=== PATIENT | male | born 1995 | race Two or more races ===

== ENCOUNTER 2025-07-02 15:15 | Inpatient (IN) | payer MEDICAID, OTHER ==
[~2025-07-02] VITALS: Ht 180.3 cm; Wt 108.0 kg
--- NOTE | 2025-07-02 15:21 | ED.PDOC ---
HPI Comments This is a 29 year old male presenting to the ED with chief complaint of chest pain. Patient reports that when he got home from work last night, he had an episode of nausea and vomiting, however, this morning he began to experience left sided chest discomfort with associated palpitations. Patient relays that he had went to work anyway, but felt lightheaded on the way to work and while at work. Patient states he then felt extreme fatigue to his left arm and neck when trying to grab his tools. Patient notes that he is now experiencing left sided chest pain with associated SOB with exertion. Patient denies any cardiac history, dizziness, headache, N/V/D, abdominal pain, or syncope. Time Seen by MD: 15:20 Reviewed Notes: Nurses Notes, Medications, Allergies Allergies: Coded Allergies: NO KNOWN ALLERGIES (Unverified , 07/02/25) Information Source: Patient Mode of Arrival: Ambulatory Severity: Moderate Timing: Hours Duration: Since onset Prehospital treatment: None Location: Chest (L) Radiation: No Radiation Quality: Sharp Onset: At Rest, With Light Exertion Cardiac Risk Factors: None PE Risk Factors: None History of: None Associated Signs and Symptoms: SOB, Palpitations, N/V Past Medical History PAST MEDICAL HISTORY: Denies Surgical History: Denies all surgeries Family History Family History: Reviewed,noncontributory to illness Social History Smoker: Non-Smoker Alcohol: Occasionally Drugs: Marijuana Lives In: Home Constitutional: reports: fatigue; denies: chills, diaphoresis, fever, malaise, sweats, weakness, others EENTM: denies: blurred vision, double vision, ear bleeding, ear discharge, ear drainage, ear pain, ear ringing, eye pain, eye redness, hearing loss, mouth pain, mouth swelling, nasal discharge, nose bleeding, nose congestion, nose pain, photophobia, tearing, throat pain, throat swelling, voice changes, others Respiratory: reports: SOB with excertion; denies: cough, hemoptysis, orthopnea, SOB at rest, shortness of breath, stridor, wheezing, others Cardiovascular: reports: chest pain, palpitations; denies: dizzy spells, diaphoresis, Dyspnea on exertion, edema, irregular heart beat, left arm pain, lightheadedness, PND, syncope, others Gastrointestinal: reports: nausea, vomiting; denies: abdomen distended, abdominal pain, blood streaked bowels, constipated, diarrhea, dysphagia, difficulty swallowing, hematemesis, melena, poor appetite, poor fluid intake, rectal bleeding, rectal pain, others Genitourinary: denies: burning, dysuria, flank pain, frequency, hematuria, incontinence, penile discharge, penile sore, pain, testicle pain, testicle swel ling, urgency, others Neurological: denies: dizziness, fainting, headache, left sided numbness, left sided weakness, numbness, paresthesia, pre-existing deficit, right sided numbness, right sided weakness, seizure, speech problems, tingling, tremors, weakness, others Musculoskeletal: denies: back pain, gout, joint pain, joint swelling, muscle pain, muscle stiffness, neck pain, others Integumetry: denies: bruises, change in color, change in hair/nails, dryness, laceration, lesions, lumps, rash, wounds, others Allergic/Immunocompromised: denies: Difficulty Healing, Frequent Infections, Hives, Itching, others Hematologic/Lymphatic: denies: anemia, blood clots, easy bleeding, easy bruising, swollen glands, others Endocrine: denies: excessive hunger, excessive sweating, excessive thirst, excessive urination, flushing, intolerance to cold, intolerance to heat, unexplained weight gain, unexplained weight loss, others Psychiatric: denies: anxiety, bipolar disorder, depression, hopeless, panic disorder, schizophrenia, sleepless, suicidal, others All Other Systems: Reviewed and Negative Physical Exam General Appearance: Moderate Distress HEENT: Normal ENT Inspection, Pharynx Normal, TMs Normal Neck: Full Range of Motion, Non-Tender, Normal, Normal Inspection Respiratory: Chest Non-Tender, Lungs Clear, No Accessory Muscle Use, No Respiratory Distress, Normal Breath Sounds Cardiovascular: Irregular, No Edema, No JVD, No Murmur, No Gallop, Tachycardia Breast Exam: Deferred Gastrointestinal: No Organomegaly, Non Tender, No Pulsatile Mass, Normal Bowel Sounds, Soft Genitalia: Deferred Pelvic: Deferred Rectal: Deferred Extremities: No calf tenderness, Normal capillary refill, Normal inspection, Normal range of motion, Non-tender, No pedal edema Musculoskeletal : Apperance: Normal Neurologic: Alert, control director II-XII nml as Tested, No Motor Deficits, Normal Affect, Normal Mood, No Sensory Deficits Cerebellar Function: Normal Reflexes: Normal Skin: Dry, Normal Color, Warm Lymphatic: No Adenopathy EKG EKG : Pulse Rate (adult): 173 [place]: Normal Cardiac Rhythm: Afib Block: None Hypertrophy: None ST: Normal Was a procedure done? Was a procedure done?: No CP Differential Dx Differential Diagnosis: Angina, [place], Pulmonary Embolus Differential Diagnosis: CHF Differential Diagnosis: Pericarditis X-Ray, Labs, Meds, VS Vital Signs Date Time Temp Pulse Resp B/P (MAP) Pulse Ox O2 Delivery O2 Flow Rate FiO2 07/02/25 15:22 97.7 156 16 104/79 (87) 96 97.7 07/02/25 15:21 173 07/02/25 15:20 173 Lab Test 07/02/25 15:10 Range/Units White Blood Count 18.3 H 4.4-10.8 10^3/uL Red Blood Count 5.25 4.5-5.90 10^6/uL Hemoglobin 15.8 13.5-17.5 g/dL Hematocrit 46.9 41.0-53.0 % Mean Corpuscular Volume 89.3 80.0-100.0 fL Mean Corpuscular Hemoglobin 30.1 28.0-32.0 pg Mean Corpuscular Hemoglobin Concent 33.7 32.0-36.0 g/dL Red Cell Distribution Width 13.0 11.8-14.3 % Platelet Count 440 140-450 10^3/uL Mean Platelet Volume 8.5 6.9-10.8 fL Neutrophils (%) (Auto) 73.9 37.0-80.0 % Lymphocytes (%) (Auto) 16.0 10.0-50.0 % Monocytes (%) (Auto) 9.1 0.0-12.0 % Eosinophils (%) (Auto) 0.3 0.0-7.0 % Basophils (%) (Auto) 0.7 0.0-2.0 % Neutrophils # (Auto) 13.5 H 1.6-8.6 10 ^3/uL Lymphocytes # (Auto) 2.9 0.4-5.4 10 ^3/uL Monocytes # (Auto) 1.7 H 0-1.3 10 ^3/uL Eosinophils # (Auto) 0 0-0.8 10 ^3/uL Basophils # (Auto) 0.1 0-0.2 10 ^3/uL Nucleated Red Blood Cells 0.1 % Sodium Level 142 136-145 mmol/L Potassium Level 4.2 3.5-5.1 mmol/L Chloride Level 107 98-107 mmol/L Carbon Dioxide Level 24 20-31 mmol/L Anion Gap 11 5-15 Blood Urea Nitrogen 18 9-23 mg/dL Creatinine 1.15 0.700-1.30 mg/dL Glomerular Filtration Rate Calc 88 >90 mL/min BUN/Creatinine Ratio 15.7 10.0-20.0 Serum Glucose 95 74-106 mg/dL Calcium Level 9.8 8.7-10.4 mg/dL Magnesium Level 2.3 1.6-2.6 mg/dL Troponin I High Sensitivity 32 </=54 ng/L Current Medications Medications (Trade) Dose Ordered Sig/Mary Ann Route Start Time Stop Time Status Last Admin Diltiazem HCl (Cardizem Injection) 20 mg ONCE ONCE IV 07/02/25 15:30 07/02/25 15:31 DC 07/02/25 15:39 IV Hep-Lock was established The patient has a heart rate above 160 initially The patient was given diltiazem 20 mg IV push which did not convert the patient but achieved rate control at around 90 The patient's CBC shows an elevated white blood cell count of 18.3 The chemistry panel is within normal limits At this time, the patient is being admitted to the hospitalist. The patient will be given Cardizem orally per the bag machine operator (Dr. Pandey) Images Reviewed?: Images reviewed and evaluated by me Time of 1ST Reevaluation: 15:56 Reevaluation 1ST: Unchanged Patient Education/Counseling: Diagnosis, Treatment, Prognosis Family Education/Counseling: No Family Present SEPSIS Sepsis Screen Physician Orders Heplock Iv (07/02/25 15:18) Structural Worker (07/02/25 15:18) Blood Pressure (07/02/25 15:18) Pulse Oximetry (07/02/25 15:18) Diltiazem 125mg/125ml Bag Kit (Cardizem) (07/02/25 15:30) Troponin-I Hs (07/02/25 16:18) Troponin-I Hs (07/02/25 18:18) Electrocardigram (07/02/25 15:25) Electrocardigram (12/4/25 16:25) Electrocardigram (07/02/25 18:25) Chest Portable (07/02/25 15:26) Vital Signs Date Time Temp Pulse Resp B/P (MAP) Pulse Ox O2 Delivery O2 Flow Rate FiO2 07/02/25 15:22 97.7 156 16 104/79 (87) 96 97.7 07/02/25 15:21 173 07/02/25 15:20 173 Laboratory Tests Test 07/02/25 15:10 White Blood Count 18.3 10^3/uL (4.4-10.8) H Medications Medications Dose Ordered Sig/Mary Ann Route Start Time Stop Time Status Last Admin Dose Admin Diltiazem HCl 20 mg ONCE ONCE IV 07/02/25 15:30 07/02/25 15:31 DC 07/02/25 15:39 Departure 1 Departure Time of Disposition: 16:23 Impression: Primary Impression: Atrial fibrillation with rapid ventricular response Disposition: ADMITTED INPATIENT Admit to: Tele Condition: Fair Critical Care Note Critical Care Time?: Yes (35 min-critical care time only) Stability Stability form required: Yes Unstable for transfer: Telemetry monitoring (Telemetry monitoring required), ED Physician Assesment (Clinical assesment) Heart Score Heart Score: Heart Score Response (Comments) Value History Highly Suspicious 2 EKG Repolarization Disturb 1 Age <45 0 Risk Factors No known risk factors 0 Troponin N/A 0 Total 3 I personally scribed for HEAVENLY MIDDLETON MD ([email or web address]) on 07/02/25 at 15:21. Electronically submitted by Tereso Parish ([email or web address]). I personally scribed for HEAVENLY MIDDLETON MD ([email or web address]) on 07/02/25 at 15:26. Electronically submitted by Tereso Parish ([email or web address]). HEAVENLY MIDDLETON MD Jul 02, 2025 15:21
[2025-07-02 15:22] VITALS: PULSE 156; RESP 16; O2SAT 96
[2025-07-02] MEDS: dilTIAZem 25 MG/5 ML VIAL IV ONE (15:39)
[2025-07-02 15:53] LABS: Hematocrit 46.9 % (41.0-53.0); Hemoglobin 15.8 g/dL (13.5-17.5); Mean Corpuscular Hemoglobin 30.1 pg (28.0-32.0); Mean Corpuscular Volume 89.3 fL (80.0-100.0); Nucleated Red Blood Cells % 0.1 %
[2025-07-02 15:58] LABS: Chloride 107 mmol/L (98-107); Potassium 4.2 mmol/L (3.5-5.1); Sodium 142 mmol/L (136-145)
[2025-07-02 15:59] LABS: Anion Gap 11 (5-15); Calcium 9.8 mg/dL (8.7-10.4); Carbon Dioxide 24 mmol/L (20-31)
[2025-07-02 16:04] LABS: BUN/Creatinine Ratio 15.7 (10.0-20.0); Blood Urea Nitrogen 18 mg/dL (9-23); Glucose 95 mg/dL (74-106); Magnesium 2.3 mg/dL (1.6-2.6)
[2025-07-02] MEDS: dilTIAZem 120MG ER CAP PO ONE (16:31)
[2025-07-02] MEDS ORDERED: NITROGLYCERIN 0.4 MG SL TAB SL PRN (16:45)
[2025-07-02] MEDS ORDERED: MORPHINE SULFATE INJ 2 MG/ml SYRG IV PRN (16:45)
[2025-07-02] MEDS ORDERED: ONDANSETRON HCL 4 MG/2 ML VIAL IV PRN (16:45)
--- NOTE | 2025-07-02 17:01 | DVH ---
CLINICAL HISTORY: Shortness of breath. TECHNIQUE: Single portable upright AP view of the chest was obtained. COMPARISON: None available. FINDINGS: Lungs: Clear. Pleura: No pneumothorax or pleural effusion. Cardiomediastinal silhouette: Top-normal cardiac silhouette. Normal mediastinal silhouette Bones: No acute osseous abnormality. Imaged Upper Abdomen: unremarkable. IMPRESSION: No acute cardiopulmonary process.
--- NOTE | 2025-07-02 17:47 | DVHHP2 ---
History of Present Illness Reason for Visit: Chest pain History of Present Illness 29-year-old presents for evaluation of chest pain. Patient endorses a one day history of developing dizziness initially in the morning with fatigue. She reports leaving to work and developing substernal discomfort he describes it as dullness/pressure. Patient subsequently developed shortness for breath and palpitations so he presented to the emergency department for further evaluation. Past Medical History Denies Past Surgical History Denies Family History Noncontributory Smoke: No ALCOHOL: occassional Drugs: Marijuana Lives: with Family Review of Systems Review of Systems Review of systems are currently negative otherwise addressed in HPI. Allergies: Coded Allergies: NO KNOWN ALLERGIES (Unverified , 07/02/25) Medications Current Medications Medications Dose Ordered Sig/Mary Ann Route Start Time Stop Time Status Last Admin Dose Admin Temazepam 15 mg QHSP PRN PO 07/02/25 16:45 Ondansetron HCl 4 mg Q4HP PRN IV 07/02/25 16:45 Nitroglycerin 0.4 mg Q5MINP PRN SL 07/02/25 16:45 Morphine Sulfate 2 mg Q30M PRN IV 07/02/25 16:45 Exam Vital Signs Vital Signs Date Time Temp Pulse Resp B/P (MAP) Pulse Ox O2 Delivery O2 Flow Rate FiO2 07/02/25 17:32 98 Nasal Cannula* 2 28 07/02/25 17:06 97.7 110 16 120/80 (93) 97.7 Exam Gen: 29-year-old male in mild distress Skin: Warm, dry, normal color and texture, no rash. HEENT: Normocephalic atraumatic, mucous membranes moist and pink. Neck: Cervical and supraclavicular nodes normal without enlargement, trachea is midline, thyroid gland is normal without masses. Pulmonary: Clear to auscultation and percussion bilaterally. Cardiac: Irregular rhythm Abdomen: Soft, nontender, nondistended, bowel sounds present all 4 quadrants, no guarding, no rigidity, no organomegaly. Extremities: No cyanosis, clubbing, no edema Neuro: Cranial nerves II through XII grossly intact, normal affect and speech, no focal motor deficits. Labs/Xrays Labs Test 07/02/25 16:16 07/02/25 15:10 Range/Units Troponin I High Sensitivity 31 </=54 ng/L White Blood Count 18.3 H 4.4-10.8 10^3/uL Red Blood Count 5.25 4.5-5.90 10^6/uL Hemoglobin 15.8 13.5-17.5 g/dL Hematocrit 46.9 41.0-53.0 % Mean Corpuscular Volume 89.3 80.0-100.0 fL Mean Corpuscular Hemoglobin 30.1 28.0-32.0 pg Mean Corpuscular Hemoglobin Concent 33.7 32.0-36.0 g/dL Red Cell Distribution Width 13.0 11.8-14.3 % Platelet Count 440 140-450 10^3/uL Mean Platelet Volume 8.5 6.9-10.8 fL Neutrophils (%) (Auto) 73.9 37.0-80.0 % Lymphocytes (%) (Auto) 16.0 10.0-50.0 % Monocytes (%) (Auto) 9.1 0.0-12.0 % Eosinophils (%) (Auto) 0.3 0.0-7.0 % Basophils (%) (Auto) 0.7 0.0-2.0 % Neutrophils # (Auto) 13.5 H 1.6-8.6 10 ^3/uL Lymphocytes # (Auto) 2.9 0.4-5.4 10 ^3/uL Monocytes # (Auto) 1.7 H 0-1.3 10 ^3/uL Eosinophils # (Auto) 0 0-0.8 10 ^3/uL Basophils # (Auto) 0.1 0-0.2 10 ^3/uL Nucleated Red Blood Cells 0.1 % Sodium Level 142 136-145 mmol/L Potassium Level 4.2 3.5-5.1 mmol/L Chloride Level 107 98-107 mmol/L Carbon Dioxide Level 24 20-31 mmol/L Anion Gap 11 5-15 Blood Urea Nitrogen 18 9-23 mg/dL Creatinine 1.15 0.700-1.30 mg/dL Glomerular Filtration Rate Calc 88 >90 mL/min BUN/Creatinine Ratio 15.7 10.0-20.0 Serum Glucose 95 74-106 mg/dL Calcium Level 9.8 8.7-10.4 mg/dL Magnesium Level 2.3 1.6-2.6 mg/dL Thyroid Stimulating Hormone (TSH) 1.93 0.55-4.78 uIU/mL SEPSIS Sepsis Screen Date sepsis recognized/suspect: Jul 02, 2025 Time Sepsis recognized/suspect: 152 Recent Procedure: No On Antibiotic Therapy: No Respiratory Rate >20: No Heart Rate >90: Yes Temp<36 C (96.8 F) or >38.3 C: No SBP <90 or MAP <65 mmHG: No New Acute Mental Status Change: No Is the patient on CPAP, BIPAP,: No Physician Orders Heplock Iv (07/02/25 15:18) Supply Crib Attendant (07/02/25 15:18) Blood Pressure (07/02/25 15:18) Pulse Oximetry (07/02/25 15:18) Diltiazem 125mg/125ml Bag Kit (Cardizem) (07/02/25 15:30) Troponin-I Hs (07/02/25 18:18) Electrocardigram (07/02/25 15:25) Electrocardigram (07/02/25 16:25) Electrocardigram (07/02/25 18:25) Chest Portable (07/02/25 15:26) * Cardiology Consult (07/02/25 16:40) Regular Diet (07/02/25 Dinner) Basic Metabolic Panel (07/03/25 04:00) Admit (07/02/25 16:40) Temazepam (Restoril) (07/02/25 16:45) Ondansetron Hcl (Zofran) (07/02/25 16:45) Echo 2d Mode Cardiac Dop (07/02/25 16:40) Condition: Fair (07/02/25 16:40) Bedrest With Bathroom Privileg (07/02/25 16:40) Nitroglycerin Sublingual (Ntrostat Subli (07/02/25 16:45) Morphine Sulfate Injection (07/02/25 16:45) Stat Ekg For Chest Pain (07/02/25 16:40) Notify Md Of Changes From Base (07/02/25 16:40) Helicopter Pilot Instructor For 24 Hours (07/02/25 16:40) Emergency Dysrhythmia Protocol (07/02/25 16:40) Rhythm Strips Once Every Shift (07/02/25 16:40) Oxygen By Nasal Cannula (07/02/25 16:40) Vital Signs Date Time Temp Pulse Resp B/P (MAP) Pulse Ox O2 Delivery O2 Flow Rate FiO2 07/02/25 17:32 98 Nasal Cannula* 2 28 07/02/25 17:06 97.7 110 16 120/80 (93) 98 97.7 07/02/25 16:31 102 116/86 07/02/25 15:22 156 16 96 Room Air* 0 21 07/02/25 15:22 97.7 156 16 104/79 (87) 96 97.7 07/02/25 15:21 173 07/02/25 15:20 173 07/02/25 15:15 97.4 173 16 104/79 98 97.4 Laboratory Tests Test 07/02/25 15:10 White Blood Count 18.3 10^3/uL (4.4-10.8) H Medications Medications Dose Ordered Sig/Mary Ann Route Start Time Stop Time Status Last Admin Dose Admin Diltiazem HCl 20 mg ONCE ONCE IV 07/02/25 15:30 07/02/25 15:31 DC 07/02/25 15:39 20 MG Diltiazem HCl 120 mg ONCE ONCE PO 07/02/25 16:00 07/02/25 16:01 DC 07/02/25 16:31 120 MG Assessment/Plan Assessment/Plan Assessment AFib with RVR Palpitations Plan Admit the patient to telemetry to the hospitalist Cardiology consultation Echocardiogram pending Continue treatment per orders. Plan discussed with: Patient My Orders Orders - ROCCO WEBSTER Procedure Category Date Status Time * Cardiology Consult CONS 07/02/25 Transmitted 16:40 Regular Diet DIET 07/02/25 Transmitted Dinner Basic Metabolic Panel LAB 07/03/25 Verified 04:00 Admit ADMIT 07/02/25 Transmitted 16:40 Temazepam (Restoril) PHA 07/02/25 In Process 16:45 Ondansetron Hcl PHA 07/02/25 In Process (Zofran) 16:45 Echo 2d Mode Cardiac US 07/02/25 Logged DOP 16:40 Condition: Fair MARIANO 07/02/25 In Process 16:40 Bedrest With Bathroom MARIANO 07/02/25 In Process Privileg 16:40 Nitroglycerin PHA 07/02/25 In Process Sublingual (Ntrostat 16:45 Morphine Sulfate PHA 07/02/25 In Process Injection 16:45 Stat Ekg For Chest MARIANO 07/02/25 In Process Pain 16:40 Notify Of Changes [facility] 07/02/25 In Process From Base 16:40 Helicopter Pilot Instructor For [facility] 07/02/25 In Process 24 Hours 16:40 Emergency Dysrhythmia [facility] 07/02/25 In Process Protocol 16:40 Rhythm Strips Once [facility] 07/02/25 In Process Every Shift 16:40 Oxygen By Nasal RT 07/02/25 Transmitted Cannula 16:40 Date of Service: Jul 02, 2025 Billing Provider: ROCCO WEBSTER Common Visit Codes: [id number] INP/OBS CARE (HIGH) ROCCO WEBSTER Jul 02, 2025 17:47
[2025-07-02 23:37] VITALS: BP 126/40; PULSE 78; RESP 18; TEMP 98.4; O2SAT 97
[2025-07-03] MEDS: TEMAZEPAM 15 MG CAP PO PRN (00:21)
[2025-07-03 01:00] VITALS: BP 117/82; PULSE 78; RESP 21; TEMP 98; O2SAT 97
--- NOTE | 2025-07-03 03:50 | ECG ---
[facility] Test Date: 2025-07-02 Test Time: 15:53:14 Pat Name: CLARICE FRASER Department: ED Room: 0298T Gender: M Sledger: JULIO : 1995 Requested By: HEAVENLY MIDDLETON Order Number: [id number] Reading MD: Measurements Intervals [place] Rate: 87 P: 0 NM: 0 QRS: 139 QRSD: 98 T: -14 QT: 374 QTc: 450 Interpretive Statements Atrial fibrillation Probable right ventricular hypertrophy Inferior infarct, age indeterminate Abnormal lateral Q waves Please click the below link to view image of tracing.
--- NOTE | 2025-07-03 03:51 | ECG ---
[facility] Test Date: 2025-07-02 Test Time: 18:12:15 Pat Name: CLARICE FRASER Department: ED Room: 0298T Gender: M Manager Critical Care: CIRILO : 1995 Requested By: HEAVENLY MIDDLETON Order Number: [id number] Reading MD: Measurements Intervals [place] Rate: 82 P: 27 [place]: 138 QRS: 119 QRSD: 103 T: -11 QT: 374 QTc: 437 Interpretive Statements Sinus rhythm Inferior infarct, age indeterminate Abnormal lateral Q waves Please click the below link to view image of tracing.
[2025-07-03 05:00] VITALS: BP 121/81; PULSE 81; RESP 22; TEMP 97.9; O2SAT 98
[2025-07-03 07:16] LABS: Chloride 106 mmol/L (98-107); Potassium 3.9 mmol/L (3.5-5.1); Sodium 141 mmol/L (136-145)
[2025-07-03 07:17] LABS: Anion Gap 10 (5-15); Carbon Dioxide 25 mmol/L (20-31)
[2025-07-03 07:18] LABS: Calcium 9.3 mg/dL (8.7-10.4)
[2025-07-03 07:22] LABS: BUN/Creatinine Ratio 14.4 (10.0-20.0); Blood Urea Nitrogen 14 mg/dL (9-23); Glucose 92 mg/dL (74-106)
[2025-07-03 08:00] VITALS: PULSE 74; RESP 16
[2025-07-03 09:00] VITALS: BP 123/85; PULSE 74; RESP 18; TEMP 97.9; O2SAT 95
[2025-07-03 09:39] LABS: Benzodiazephine Screen, Urine Neg (NEGATIVE); Cannabinoid Screen, Urine Pos (NEGATIVE)
[2025-07-03 09:43] LABS: Amphetamine Screen, Urine Neg (NEGATIVE); Barbiturate Scree,Urine Neg (NEGATIVE); Cocaine Screen, Urine Neg (NEGATIVE); Opiate Scree,Urine Neg (NEGATIVE); Phencyclidine Screen, Urine Neg (NEGATIVE)
--- NOTE | 2025-07-03 10:14 | ECG ---
[facility] Test Date: 2025-07-02 Test Time: 15:12:49 Pat Name: CLARICE FRASER Department: ED Room: 0298T Gender: M Insulation Installer: ANIKET : 1995 Requested By: HEAVENLY MIDDLETON Order Number: [id number] Reading MD: Measurements Intervals [place] Rate: 173 P: 0 NM: 0 QRS: 138 QRSD: 94 T: -21 QT: 279 QTc: 474 Interpretive Statements Atrial fibrillation Inferior infarct, age indeterminate Abnormal lateral Q waves Baseline wander in lead(s) II,III,aVR,aVL,aVF Please click the below link to view image of tracing.
--- NOTE | 2025-07-03 11:00 | DVHINCON2 ---
Date Seen: Jul 03, 2025 Referring Physician EFRA Webb Reason for Consultation Afib RVR History of Present Illness This is a 29-year-old male patient who presents to emergency room with chief complaint of palpitations and chest discomfort. The patient reports that he woke up at 4:20 a.m. for work. He states that as soon as he woke up he initially realized his vision was a little bit blurry. Shortly thereafter, he states that his chest felt "weird". He describes feeling palpitations and chest discomfort throughout the day. He proceeded to go to work and while at work he still experienced these symptoms. He also reports associated dizziness as well as shoulder, neck, and back soreness. He states that by the time he came home symptoms did not subside which prompted him to come to the emergency room for further evaluation. Initial twelve lead electrocardiogram revealed atrial fibrillation with rapid ventricular response with heart rate in the 170s. The patient was given IV diltiazem 20 mg one time. The patient then converted into a normal sinus rhythm. At the time of assessment, the patient remains in normal sinus rhythm on quality assurance monitor final. At the time of assessment, the patient denies any cardiac symptoms. The patient denies any previous medical history. He denies any family history of cardiac problems. Past Medical History Patient denies any previous medical history Past Surgical History The patient denies any surgical history Family History: Diabetes mellitus Grand mother Hypertension G8 FATHER Family History Family history reviewed. Social History Patient admits to occasional marijuana use, denies other illicit drugs Patient reports drinking two total cans of beer every day Denies any tobacco use Allergies: Coded Allergies: NO KNOWN ALLERGIES (Unverified , 07/02/25) Home Meds Patient denies taking any prescribed medications Current Medications Current Medications Medications (Trade) Dose Ordered Sig/Mary Ann Route PRN Reason Start Time Stop Time Status Last Admin Temazepam (Restoril) 15 mg QHSP PRN PO FOR INSOMNIA 07/02/25 16:45 07/03/25 00:21 Ondansetron HCl (Zofran) 4 mg Q4HP PRN IV NAUSEA / VOMITING 07/02/25 16:45 Nitroglycerin (Ntrostat Sublingual) 0.4 mg Q5MINP PRN SL FOR CHEST PAIN 07/02/25 16:45 Morphine Sulfate 2 mg Q30M PRN IV FOR CHEST PAIN 07/02/25 16:45 Review of Systems Constitutional: No symptom reported Ears, Nose, & Throat: No symptom reported Eyes: Blurry vision Neurological: No symptoms reported Pulmonary/Respiratory: No symptoms reported Cardiovascular: Palpitations Gastrointestinal: No symptom reported Genitourinary: No symptom reported Musculoskeletal: Shoulder neck and back soreness Skin: No symptom reported Psychiatric: No symptom reported Endocrine: No symptom reported Hematologic/Lymphatic: No symptom reported Vital Signs Vital Signs Date Time Temp Pulse Resp B/P (MAP) Pulse Ox O2 Delivery O2 Flow Rate FiO2 07/03/25 09:00 97.9 74 18 123/85 (98) 95 97.9 07/02/25 23:37 Room Air* 0 21 Physical Exam General Appearance: Cooperative. Obese Pulmonary/Respiratory: Clear, bilateral breaths sounds. Cardiovascular/Chest: Regular rate and rhythm. Peripheral Pulses: 2+ Radial (R). 2+ Radial (L). 2+ Pedal (R). 2+ Pedal (L) Abdominal Exam: Normal bowel sounds. Ankle Exam: Negative ankle edema Lower extremities: Negative lower extremity edema Neuro/Mental Status: A/OX4, coherent. Thoughts/Psych: Normal thought pattern. Appropriate mood and affect. Good judgment and insight. Appearance: No acute distress. Skin Exam: Normal inspection. Normal color. Warm and dry. Labs/Diagnostic Data Labs Test 07/03/25 08:50 07/03/25 06:28 07/02/25 17:59 07/02/25 15:10 Range/Units Urine Opiates Screen Neg NEGATIVE Urine Fentanyl Screen Neg NEGATIVE Urine Barbiturates Screen Neg NEGATIVE Urine Phencyclidine Screen Neg NEGATIVE Urine Amphetamines Screen Neg NEGATIVE Urine Benzodiazepines Screen Neg NEGATIVE Urine Cocaine Screen Neg NEGATIVE Urine Cannabinoids Screen Pos NEGATIVE Sodium Level 141 136-145 mmol/L Potassium Level 3.9 3.5-5.1 mmol/L Chloride Level 106 98-107 mmol/L Carbon Dioxide Level 25 20-31 mmol/L Anion Gap 10 5-15 Blood Urea Nitrogen 14 9-23 mg/dL Creatinine 0.97 0.700-1.30 mg/dL Glomerular Filtration Rate Calc 108 >90 mL/min BUN/Creatinine Ratio 14.4 10.0-20.0 Serum Glucose 92 74-106 mg/dL Hemoglobin A1c 5.5 <5.7 % A1C Calcium Level 9.3 8.7-10.4 mg/dL Troponin I High Sensitivity 31 </=54 ng/L White Blood Count 18.3 H 4.4-10.8 10^3/uL Red Blood Count 5.25 4.5-5.90 10^6/uL Hemoglobin 15.8 13.5-17.5 g/dL Hematocrit 46.9 41.0-53.0 % Mean Corpuscular Volume 89.3 80.0-100.0 fL Mean Corpuscular Hemoglobin 30.1 28.0-32.0 pg Mean Corpuscular Hemoglobin Concent 33.7 32.0-36.0 g/dL Red Cell Distribution Width 13.0 11.8-14.3 % Platelet Count 440 140-450 10^3/uL Mean Platelet Volume 8.5 6.9-10.8 fL Neutrophils (%) (Auto) 73.9 37.0-80.0 % Lymphocytes (%) (Auto) 16.0 10.0-50.0 % Monocytes (%) (Auto) 9.1 0.0-12.0 % Eosinophils (%) (Auto) 0.3 0.0-7.0 % Basophils (%) (Auto) 0.7 0.0-2.0 % Neutrophils # (Auto) 13.5 H 1.6-8.6 10 ^3/uL Lymphocytes # (Auto) 2.9 0.4-5.4 10 ^3/uL Monocytes # (Auto) 1.7 H 0-1.3 10 ^3/uL Eosinophils # (Auto) 0 0-0.8 10 ^3/uL Basophils # (Auto) 0.1 0-0.2 10 ^3/uL Nucleated Red Blood Cells 0.1 % Magnesium Level 2.3 1.6-2.6 mg/dL Thyroid Stimulating Hormone (TSH) 1.93 0.55-4.78 uIU/mL Assessment Atrial fibrillation with rapid ventricular response, now normal sinus rhythm Rule out structural heart disease Alcohol abuse Cannabinoid use Obesity Plan/Recommendation We will continue with the following plan/recommendations (Dr. Pandey): * Transthoracic echocardiogram to evaluate cardiac function * [id number] VASc score: 0 points * Low dose beta nila for rate control * Initiate DOAC therapy (at least 4 weeks) * Monitor and replete electrolytes as needed, keep potassium greater than four and magnesium greater than two * Risk factor modifications, counseled * Cessation of alcohol use Case reviewed and discussed with . EKG's reviewed by . The patient came in with atrial fibrillation with rapid ventricular response. The patient was given IV Cardizem by ER physician and was chemically cardioverted back into a normal sinus rhythm. Per guidelines, the patient will be initiated on DOAC therapy for four weeks given recent chemical cardioversion to reduce the risk of stroke. The patient we will need to follow up with Cardiology in the outpatient setting regarding further management of DOAC therapy beyond four weeks. The patient may also benefit from an outpatient event monitor. Thank you for allowing us to care for this patient. Please call with any questions or concerns. Critical care time spent: 44 minutes This medical document was created using an electronic medical record system with voice recognition software and computerized dictation system. Although this document has been carefully reviewed, there might still be some phonetic and typographical errors. Occasional wrong-word or ``sound-alike substitutions may have occurred due to the inherent limitations of voice recognition software. These areas are purely typographical due to imperfections of the software programs and do not reflect any compromise in the patient's medical care. Please read the chart carefully and recognize, using context, where these substitutions have occurred. Plan discussed with: Patient NYHA Physical activity limitations: NA Date of Service: Jul 03, 2025 Billing Provider: KATHIE CASANOVA Cardiology Common Codes: 70121-YXPHNCQ INP/OBS CARE (High) Cardiology Consultation Codes: [id number] CONSULT <45MIN KATHIE CASANOVA Jul 03, 2025 11:00
[2025-07-03 11:02] LABS: Triglycerides 143 mg/dL (< 150)
[2025-07-03 11:04] LABS: Cholesterol 165 mg/dL (< 200); HDL Cholesterol 38 mg/dL (40-59)
[2025-07-03 13:00] VITALS: BP 112/77; PULSE 70; RESP 16; TEMP 98.2; O2SAT 97
--- NOTE | 2025-07-03 15:53 | DVHPN2 ---
Subjective no further chest pain or palpitations Reviewed: H&P Changes from previous H/P or p: No Changes Objective Vitals Vital Signs Date Time Temp Pulse Resp B/P (MAP) Pulse Ox O2 Delivery O2 Flow Rate FiO2 07/03/25 13:00 98.2 70 16 112/77 (89) 97 98.2 07/03/25 08:00 Room Air* 0 21 Intake/Output Intake and Output 07/03/25 05:00 Intake Total 500 ml Output Total 300 ml Balance 200 ml Intake Oral 500 ml Output Urine Total 300 ml General Appearance: Alert, Oriented X3 HEENT: Atraumatic Cardiovascular: Regular rate, Normal S1, Normal S2 Abdomen: Normal bowel sounds Medications Current Medications Medications Dose Ordered Sig/Mary Ann Route Start Time Stop Time Status Last Admin Dose Admin Temazepam 15 mg QHSP PRN PO 07/02/25 16:45 07/03/25 00:21 15 MG Ondansetron HCl 4 mg Q4HP PRN IV 07/02/25 16:45 Nitroglycerin 0.4 mg Q5MINP PRN SL 07/02/25 16:45 Morphine Sulfate 2 mg Q30M PRN IV 07/02/25 16:45 Metoprolol Tartrate 12.5 mg BID PO 07/03/25 22:00 Apixaban 5 mg BID PO 07/03/25 22:00 Laboratory Results Laboratory Tests 07/02/25 15:10 07/03/25 06:28 Chemistry Test 07/03/25 06:28 Calcium Level 9.3 mg/dL (8.7-10.4) Lipid panel Test 07/03/25 06:28 Cholesterol Level 165 mg/dL (< 200) HDL Cholesterol 38 mg/dL (40-59) L Triglycerides Level 143 mg/dL (< 150) HgA1c, TSH Test 07/03/25 06:28 Hemoglobin A1c 5.5 % A1C (<5.7) Assessment/Plan Assessment/Plan AFib with RVR Palpitations Pending echocardiogram Cardiology on consult Metoprolol and eliquis Plan discussed with: Patient Date of Service: Jul 03, 2025 Billing Provider: KAREN HALLMAN MD Common Visit Codes: [id number] INP/OBS CARE(HIGH) KAREN HALLMAN MD Jul 03, 2025 15:53
[2025-07-03 17:00] VITALS: BP 137/98; PULSE 75; RESP 16; TEMP 98.3; O2SAT 97
[2025-07-03] MEDS ORDERED: METOPROLOL TARTRATE 25 MG TAB PO SCH (22:00)
[2025-07-03] MEDS ORDERED: APIXABAN 5 MG TAB PO SCH (22:00)
== END 2025-07-03 17:30 | disposition left against medical advice (07) | DRG 201 ==
LOC: ER 15:15 → OVERFLOW 16:40 → TELE-WESTW 23:32
PROVIDERS: ADMIT Hospitalist; ATTEND Hospitalist
DX: I48.91 Unspecified atrial fibrillation (principal); E66.9 Obesity, unspecified; F10.10 Alcohol abuse, uncomplicated; Y90.9 Presence of alcohol in blood, level not specified; Z68.33 Body mass index [BMI] 33.0-33.9, adult; Z53.29 Procedure and treatment not carried out because of patient's decision for other reasons; Z82.49 Family history of ischemic heart disease and other diseases of the circulatory system; Z83.3 Family history of diabetes mellitus
CPT/HCPCS: 36415; 71045; 80048; 80061; 80307; 83036; 83735; 84443; 84484; 85025; 93005; 93306; 99291; G0378